=== PATIENT | female | born 1955 | race Caucasian/White ===

== ENCOUNTER 2023-03-26 02:00 | Day surgery (SDC) | payer MEDICARE, SELFPAY ==
[2023-03-17 09:10] VITALS: BMI 31.6
--- NOTE | 2023-03-24 10:11 | SUR.PREOP ---
Patient called regarding upcoming procedure. Message left on patient's voicemail regarding preop instructions, appointment times, and procedure prep.
--- NOTE | 2023-03-25 18:04 | PM.HPGS ---
History of Present Illness History of Present Illness Consent: Risks, benefits, and alternatives have been discussed and questions answered. Patient agrees to proceed with procedure. Chief complaint: neoplasm screening Narrative: Marylu Sims is a 67 year old female Referred for colon cancer screening. Her last colonoscopy was at least 10 years ago. Her father had colon cancer and also an uncle on her mother side had colon cancer. Review of Systems Review of Systems: All systems reviewed & are unremarkable except as noted in HPI and below PMFSH Social History Social History Smoking status: Former smoker Tobacco type: cigarettes and e-cigarettes/vaping Additional smoking assessment comments: vapes occasionally Alcohol intake: current Alcohol use details: socially Substance use: never Substance use type: does not use Living arrangements: with family Spiritual care concerns: No Meds Home Medications and Allergies Home Medications Medication Instructions Recorded Confirmed Type Adult Probiotic 1 tab-cap PO DAILY 03/17/23 03/26/23 History metoprolol succinate 25 mg 25 mg PO DAILY 03/17/23 03/17/23 History tablet,extended release 24 hr Allergies Allergy/AdvReac Type Severity Reaction Status Date / Time tetracycline Allergy Unknown Verified 03/26/23 13:28 Exam Resp: Auscultation: clear to auscultation bilaterally Cardio: Rate: regular rate Rhythm: regular rhythm GI: GI Palp: Yes Soft to palpation and No Tenderness to palpation present (GI) Assessment and Plan Assessment and plan (1) Colon cancer screening: Code(s): Z12.11 - Encounter for screening for malignant neoplasm of colon Status: Acute Assessment and Plan: Colonoscopy with possible biopsy or polypectomy or cautery or injection of substances.
[2023-03-26 13:30] VITALS: BP 102/59; PULSE 70; RESP 18; TEMP 36.3; O2SAT 99
[2023-03-26] MEDS: LACTATED RINGERS 1,000 ML 150 ML IV CONT (13:53)
[2023-03-26 14:58] VITALS: BP 105/90; PULSE 74; RESP 20; O2SAT 100
[2023-03-26 15:08] VITALS: BP 118/77; PULSE 75; RESP 24; O2SAT 100
[2023-03-26 15:18] VITALS: BP 136/83; PULSE 75; RESP 22; O2SAT 100
--- NOTE | 2023-03-26 15:24 | SUR.PHASEII ---
pt co of left shoulder pain. states very sharp intermittent pain, especially when touched. at bs rubbing her shoulder. pt has good rom in shoulder and arm. states pain does not radiate. thinks it is from how she was laying on the stretcher during procedure. dr ledezma informed. he recommends take ibubrofen, pt states she has some in the car and will take upon discharge. also rec heat to the area. pt and voiced understandiing.
== END 2023-03-26 15:32 | disposition home or self-care (01) ==
PROVIDERS: PCP Family Medicine; Visit Provider Internal Medicine Gastroenterology
PROC: 0DJD8ZZ Inspection of Lower Intestinal Tract, Via Natural or Artificial Opening Endoscopic (ICD-10-PCS; CPT 45378; principal; 2023-03-26 14:30)
DX: Z12.11 Encounter for screening for malignant neoplasm of colon (principal); Z80.0 Family history of malignant neoplasm of digestive organs; F17.290 Nicotine dependence, other tobacco product, uncomplicated
CPT/HCPCS: G0105; J2704; J7120

== ENCOUNTER 2025-02-28 10:45 | Outpatient (CLI) | payer MEDICARE, SELFPAY ==
--- NOTE | ~2025-02-28 | US_ITS ---
EXAMINATION: US thyroid DATE: 02/28/2025 12:33 INDICATION: Nontoxic goiter TECHNIQUE: Multiple ultrasound images of the thyroid were obtained. COMPARISON: None. FINDINGS: The right thyroid lobe measures 6.2 x 1.7 x 2.2 cm. The left thyroid lobe measures 5.3 x 1.2 x 1.7 cm. The thyroid is heterogeneous in echotexture throughout. Numerous nodules are seen in both lobes. The largest in the right lobe measures 2.6 x 1.5 x 1.6 cm The largest in the left lobe measures 0.8 x 0.5 x 0.6 mm. Isthmus: 3 mm with multiple nodules including the largest measuring 2.2 x 0.9 x 1.6 cm. The largest nodules have indeterminate TI-RADS classification 3-4. IMPRESSION: 1. Multinodular appearance of the thyroid. 2. The largest nodules in the right lobe and isthmic region at indeterminate sonographic features, and correlation with FNA or surveillance thyroid ultrasound is recommended. Reviewed, dictated and finalized at location A. [employer] IMPRESSION: 1. Multinodular appearance of the thyroid. 2. The largest nodules in the right lobe and isthmic region at indeterminate so nographic features, and correlation with FNA or surveillance thyroid ultrasound is recommended.
== END 2025-02-28 10:46 | disposition home or self-care (01) ==
PROVIDERS: PCP Family Medicine; Visit Provider Family Medicine
DX: E04.2 Nontoxic multinodular goiter (principal)
CPT/HCPCS: 76536